=== PATIENT | female | born 1950 | race Caucasian/White ===

== ENCOUNTER → 2017-01-20 | Outpatient (CLI) | payer MEDICARE ==
--- NOTE | 2017-01-20 14:53 | REP ---
Left rib series: Five views including PA chest. History: Pain. Findings: PA chest radiograph shows clear well inflated lungs and sharp pleural angles. Cardiomediastinal silhouette is unremarkable and unchanged from the May 14, 2014 prior study. Pulmonary vasculature is not increased. Heart is not enlarged. Multiple views of the left rib cage shows diffuse osteopenia. No rib fracture is visible. No bony destructive lesion is appreciated. Impression: No acute bony abnormality. There is an old healed rib fracture visible on the right. Signed by Rivera Bhakta MD 01/20/2017 04:50 P
--- NOTE | 2017-01-20 15:09 | REP ---
Right small finger series: Four views. History: Pain. Findings: Four views of the right small finger demonstrate diffuse osteopenia. There is a chip fracture at the volar aspect of the PIP joint from the base of the middle phalanx. This is only seen on the somewhat rotated lateral radiograph. Incidental note is made of some cystic change in the distal ulna. Impression: 1. Volar plate avulsion chip fracture at the PIP joint of the fifth finger from the base of the middle phalanx. 2. Diffuse osteopenia. 3. 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 Signed by Rivera Bhakta MD 01/20/2017 04:51 P
== END ==
LOC: M WUC 12:12
PROVIDERS: ATTEND Physician Assistant
DX: S20.222A Contusion of left back wall of thorax, initial encounter (principal); M79.644 Pain in right finger(s); X58.XXXA Exposure to other specified factors, initial encounter; Y92.89 Other specified places as the place of occurrence of the external cause; Y99.9 Unspecified external cause status; Y93.9 Activity, unspecified

== ENCOUNTER → 2017-11-14 | Outpatient (CLI) | payer MEDICARE | LOC: M WUC 15:29 | DX: M54.31 Sciatica, right side (principal) | CPT/HCPCS: 72110 ==

== ENCOUNTER → 2019-07-03 | Outpatient (REF) | payer MEDICARE | LOC: M LAB REF 15:10 | PROVIDERS: ATTEND Otolaryngology | DX: J31.0 Chronic rhinitis (principal) ==

== ENCOUNTER → 2019-07-17 | Outpatient (REF) | payer MEDICARE | LOC: M LAB REF 07:43 | PROVIDERS: ATTEND Dermatology | DX: L57.0 Actinic keratosis (principal) ==

== ENCOUNTER → 2020-02-08 | Outpatient (CLI) | payer MEDICARE ==
[~2020-02-08] MED LIST: FAMO40TA3 PO; HYDR-3713 PO; SIMV20TA22 PO
== END ==
LOC: M LABSMTC 09:59
PROVIDERS: ATTEND Anesthesiology
DX: Z01.812 Encounter for preprocedural laboratory examination (principal); Z20.828 Contact with and (suspected) exposure to other viral communicable diseases

== ENCOUNTER 2020-02-13 08:06 | Day surgery (SDC) | payer MEDICARE ==
[~2020-02-13] VITALS: Ht 165.1 cm; Wt 68.0 kg
[~2020-02-13 08:06] MED LIST changes: +LIDOCAINE 2% 100MG/5ML SDV (FOR ANES.) As Ordered ONE; +NS 1,000 ML IV ONE; +fentaNYL 100 MCG/2 ML INJECTION (J3010) As Ordered ONE; +propofoL 200 MG/20 ML VIAL As Ordered ONE
--- NOTE | 2020-02-13 09:12 | ROOR ---
Patient Name: Anthony Montelongo Procedure Date: 02/13/2020 8:56 AM Date of : 1950 Age: 69 Room: [facility] Gender: Female Note Status: Finalized Procedure: Upper GI endoscopy Indications: Abdominal pain in the right upper quadrant Providers: Bebeto Rader Jr, MD Referring MD: Danita Chandler DO Requesting Provider: Medicines: Propofol per Anesthesia Complications: No immediate complications. Procedure: Pre-Anesthesia Assessment: - Prior to the procedure, a History and Physical was performed, and patient medications and allergies were reviewed. The patient is competent. The risks and benefits of the procedure and the sedation options and risks were discussed with the patient. All questions were answered and informed consent was obtained. Patient identification and proposed procedure were verified by the physician and the nurse in the pre-procedure area and in the procedure room. Mental Status Examination: alert and oriented. Airway Examination: normal oropharyngeal airway and neck mobility. Respiratory Examination: clear to auscultation. CV Examination: normal. ASA Grade Assessment: II - A patient with mild systemic disease. After reviewing the risks and benefits, the patient was deemed in satisfactory condition to undergo the procedure. The anesthesia plan was to use moderate sedation / analgesia (conscious sedation). Immediately prior to administration of medications, the patient was re-assessed for adequacy to receive sedatives. The heart rate, respiratory rate, oxygen saturations, blood pressure, adequacy of pulmonary ventilation, and response to care were monitored throughout the procedure. The physical status of the patient was re-assessed after the procedure. The Endoscope was introduced through the mouth, and advanced to the second part of duodenum. The upper GI endoscopy was accomplished without difficulty. The patient tolerated the procedure well. Findings: The upper third of the esophagus, middle third of the esophagus and lower third of the esophagus were normal. The cardia, gastric fundus, gastric body, gastric antrum and prepyloric region of the stomach were normal. The second portion of the duodenum was normal. Patchy mild inflammation characterized by congestion (edema), erythema and friability was found in the duodenal bulb. Impression: - Normal upper third of esophagus, middle third of esophagus and lower third of esophagus. - Normal cardia, gastric fundus, gastric body, antrum and prepyloric region of the stomach. - Normal second portion of the duodenum. - Duodenitis. - No specimens collected. Recommendation: - Discharge patient to home (ambulatory). - Return to my office in 2 weeks. Procedure Code(s): --- Professional --- 31597, Esophagogastroduodenoscopy, flexible, transoral; diagnostic, including collection of specimen(s) by brushing or washing, when performed (separate procedure) Diagnosis Code(s): --- Professional --- K29.80, Duodenitis without bleeding R10.11, Right upper quadrant pain CPT copyright 2019 [employer]. All rights reserved. The codes documented in this report are preliminary and upon drawer maker review may be revised to meet current compliance requirements. Bebeto Rader MD Bebeto Rader Jr, MD 02/13/2020 9:12:00 AM Electronically signed by Bebeto Rader Jr, MD Number of Addenda: 0 Note Initiated On: 02/13/2020 8:56 AM Estimated Blood Loss: Estimated blood loss: none.
--- NOTE | 2020-02-13 09:26 | ROOR ---
Patient Name: Anthony Montelongo Procedure Date: 02/13/2020 8:57 AM Date of : 1950 Age: 69 Room: [facility] Gender: Female Note Status: Finalized Procedure: Colonoscopy Indications: Abdominal pain in the right upper quadrant Providers: Bebeto Rader Jr, MD Referring MD: Danita Chandler DO Requesting Provider: Medicines: Propofol per Anesthesia Complications: No immediate complications. Procedure: Pre-Anesthesia Assessment: - Prior to the procedure, a History and Physical was performed, and patient medications and allergies were reviewed. The patient is competent. The risks and benefits of the procedure and the sedation options and risks were discussed with the patient. All questions were answered and informed consent was obtained. Patient identification and proposed procedure were verified by the physician and the nurse in the pre-procedure area and in the procedure room. Mental Status Examination: alert and oriented. Airway Examination: normal oropharyngeal airway and neck mobility. Respiratory Examination: clear to auscultation. CV Examination: normal. ASA Grade Assessment: II - A patient with mild systemic disease. After reviewing the risks and benefits, the patient was deemed in satisfactory condition to undergo the procedure. The anesthesia plan was to use moderate sedation / analgesia (conscious sedation). Immediately prior to administration of medications, the patient was re-assessed for adequacy to receive sedatives. The heart rate, respiratory rate, oxygen saturations, blood pressure, adequacy of pulmonary ventilation, and response to care were monitored throughout the procedure. The physical status of the patient was re-assessed after the procedure. The Colonoscope was introduced through the anus and advanced to the cecum, identified by appendiceal orifice and ileocecal valve. The colonoscopy was performed without difficulty. The quality of the bowel preparation was adequate. Findings: The rectum, recto-sigmoid colon, descending colon, transverse colon, ascending colon, cecum, appendiceal orifice and ileocecal valve appeared normal. Multiple small and large-mouthed diverticula were found in the sigmoid colon. Impression: - The rectum, recto-sigmoid colon, descending colon, transverse colon, ascending colon, cecum, appendiceal orifice and ileocecal valve are normal. - Diverticulosis in the sigmoid colon. - No specimens collected. Recommendation: - Discharge patient to home (ambulatory). - Repeat colonoscopy in 10 years for screening purposes. Procedure Code(s): --- Professional --- 88486, Colonoscopy, flexible; diagnostic, including collection of specimen(s) by brushing or washing, when performed (separate procedure) Diagnosis Code(s): --- Professional --- R10.11, Right upper quadrant pain K57.30, Diverticulosis of large intestine without perforation or abscess without bleeding CPT copyright 2019 [employer]. All rights reserved. The codes documented in this report are preliminary and upon terminal computer operator review may be revised to meet current compliance requirements. Bebeto Rader MD Bebeto Rader Jr, MD 02/13/2020 9:26:04 AM Electronically signed by Bebeto Rader Jr, MD Number of Addenda: 0 Note Initiated On: 02/13/2020 8:57 AM Estimated Blood Loss: Estimated blood loss: none.
[2020-02-13 10:03] VITALS: BP 151/69
== END 2020-02-13 10:08 | disposition home or self-care (01) ==
LOC: M OPP 08:06
PROVIDERS: ATTEND Surgery
DX: K57.30 Diverticulosis of large intestine without perforation or abscess without bleeding (principal); K29.80 Duodenitis without bleeding; R10.11 Right upper quadrant pain; Z79.891 Long term (current) use of opiate analgesic; Z79.899 Other long term (current) drug therapy; Z88.2 Allergy status to sulfonamides; Z91.040 Latex allergy status
CPT/HCPCS: 43235; 45378; J3010

== ENCOUNTER → 2021-03-03 | Outpatient (CLI) | payer MEDICARE ==
[~2021-03-03] MED LIST changes: +GLUCAGON INJ 1MG VIAL As Ordered ONE; +ISOVUE-370 76% 100ML VIAL As Ordered ONE; -LIDOCAINE 2% 100MG/5ML SDV (FOR ANES.) As Ordered ONE; +NEULUMEX 0.1% SUSPENSION 450ML BOTTLE (FORMERLY VOLUMEN) As Ordered ONE; -NS 1,000 ML IV ONE; -fentaNYL 100 MCG/2 ML INJECTION (J3010) As Ordered ONE; -propofoL 200 MG/20 ML VIAL As Ordered ONE
--- NOTE | 2021-03-03 12:31 | REP ---
INDICATION: OTHER INTESTNL OBST UNSP TO PARTIAL VERSUS COMP COMPARISON: CT dated 01/01/2011 TECHNIQUE: Axial contrast-enhanced images from the lung bases to the pubic symphysis with images obtained in arterial and portal venous phases of enhancement. Low-dose oral contrast material was administered prior to imaging. Coronal and sagittal reformations were obtained. FINDINGS: Fluid-filled distention to the stomach is nonspecific and likely related to recent oral contrast administration. The small and large bowel is without significant inflammatory process and there is no evidence for obstruction or perforation. No focal areas of bowel stenosis or obvious chronic change identified. Scattered colonic and primarily sigmoid diverticulosis noted without acute diverticulitis. Liver, spleen, pancreas, bilateral adrenal glands and kidneys are essentially normal. Incidental 1 cm benign hepatic cyst identified. Pelvis demonstrates normal bladder and prior hysterectomy. No ascites. No adenopathy. No free air. Atherosclerotic changes to the aorta and vasculature noted. Musculoskeletal structures demonstrate age-related changes without acute osseous abnormality. Lung bases are clear. IMPRESSION: 1. Evaluation of the enteric system is essentially normal. Scattered colonic and primarily sigmoid diverticulosis noted. 2. No acute abdominopelvic pathology appreciated. <Electronically signed by Huy Whipple > 03/03/21 [id number]
== END ==
LOC: M RAD 09:10
PROVIDERS: ATTEND Internal Medicine Gastroenterology
DX: K56.699 Other intestinal obstruction unspecified as to partial versus complete obstruction (principal); K57.30 Diverticulosis of large intestine without perforation or abscess without bleeding
CPT/HCPCS: 74177; J1610; Q9967

== ENCOUNTER → 2021-10-14 | Outpatient (CLI) | payer MEDICARE ==
[~2021-10-14] MED LIST changes: -GLUCAGON INJ 1MG VIAL As Ordered ONE; -ISOVUE-370 76% 100ML VIAL As Ordered ONE; -NEULUMEX 0.1% SUSPENSION 450ML BOTTLE (FORMERLY VOLUMEN) As Ordered ONE
== END ==
LOC: M LABSMTC 09:11
PROVIDERS: ATTEND Orthopaedic Surgery
DX: Z01.818 Encounter for other preprocedural examination (principal); Z11.52 Encounter for screening for COVID-19

== ENCOUNTER 2022-08-04 10:21 | Emergency (ER) | payer MEDICARE ==
[~2022-08-04] VITALS: Ht 162.6 cm; Wt 65.2 kg
[2022-08-04] MEDS ORDERED: KETOROLAC 30 MG/ML 1ML VIAL IV ONE (11:35)
[2022-08-04 11:40] LABS: BASO % 0.4 % (0.0-1.0); EOS # 0.1 10^3/uL (0.0-0.5); EOS % 1.2 % (0.0-3.0); HEMATOCRIT 41.3 % (36.0-47.0); HEMOGLOBIN 12.6 g/dl (12.0-15.5); LYMPH # 2.6 10^3/uL (1.5-5.0); LYMPH % 25.7 % (24.0-44.0); MEAN CORPUSCULAR HEMOGLOBIN 26.2 pg (27.0-33.0); MEAN CORPUSCULAR HGB CONC 30.5 g/dl (32.0-36.5); MEAN CORPUSCULAR VOLUME 85.9 fl (80.0-96.0); MONO # 0.8 10^3/uL (0.0-0.8); MONO % 7.8 % (2.0-8.0); NEUTROPHILS # 6.5 10^3/uL (1.5-8.5); NEUTROPHILS % 64.6 % (36.0-66.0); PLATELET COUNT, AUTOMATED 284 10^3/uL (150-450); RED BLOOD COUNT 4.81 10^6/uL (4.00-5.40); WHITE BLOOD COUNT 10.1 10^3/uL (4.0-10.0)
[2022-08-04 11:59] LABS: LIPASE 29 U/L (12-53)
[2022-08-04 12:01] LABS: ALBUMIN 3.5 G/DL (3.2-5.2); ALKALINE PHOSPHATASE 82 U/L (46-116); ALT/SGPT 23 U/L (7.0-40); AST/SGOT 18 U/L (<34); BILIRUBIN,DIRECT 0.5 MG/DL (<0.4); BILIRUBIN,TOTAL 2.1 MG/DL (0.3-1.2); BLOOD UREA NITROGEN 15 MG/DL (9-23); CALCIUM LEVEL 9.3 MG/DL (8.3-10.6); CARBON DIOXIDE LEVEL 29 MMOL/L (20-31); CHLORIDE LEVEL 105 MMOL/L (98-107); CREATININE FOR GFR 0.75 MG/DL (0.55-1.30); GLOMERULAR FILTRATION RATE > 60.0 (>39); GLUCOSE, FASTING 96 MG/DL (74-106); POTASSIUM SERUM 4.3 MMOL/L (3.5-5.1); SODIUM LEVEL 140 MMOL/L (136-145); TOTAL PROTEIN 6.7 G/DL (5.7-8.2)
[2022-08-04] MEDS ORDERED: ISOVUE-370 76% 100ML VIAL As Ordered ONE (12:09)
[2022-08-04] MEDS ORDERED: metroNIDAZOLE (FLAGYL) 500MG TABLET PO ONE (13:30)
[2022-08-04] MEDS ORDERED: CIPROFLOXACIN 500MG TABLET PO ONE (13:30)
[2022-08-04] MEDS ORDERED: CIPR-249 PO (13:44)
[2022-08-04] MEDS ORDERED: METR-265 PO (13:44)
[2022-08-04] MEDS ORDERED: DIFL150T PO (13:44)
[2022-08-04] MEDS ORDERED: ONDA4TAB6 PO (13:44)
[2022-08-04 13:45] VITALS: BP 123/70
== END 2022-08-04 13:59 | disposition home or self-care (01) ==
LOC: M ED 10:21
DX: K57.90 Diverticulosis of intestine, part unspecified, without perforation or abscess without bleeding (principal); E11.9 Type 2 diabetes mellitus without complications; R25.1 Tremor, unspecified; K21.9 Gastro-esophageal reflux disease without esophagitis; J45.909 Unspecified asthma, uncomplicated; E78.5 Hyperlipidemia, unspecified; H81.4 Vertigo of central origin; J32.9 Chronic sinusitis, unspecified; Z88.2 Allergy status to sulfonamides; Z91.040 Latex allergy status; Z79.899 Other long term (current) drug therapy
CPT/HCPCS: 74177; 80048; 80076; 81001; 83690; 85025; 87088; 87186; 96374; 99284; J1885; Q9967

== ENCOUNTER 2023-08-19 10:22 | Emergency (ER) | payer MEDICARE ==
[~2023-08-19] VITALS: Ht 160 cm; Wt 64.7 kg
[~2023-08-19 10:22] MED LIST changes: +CIPR-249 PO; +DIFL150T PO; +METR-265 PO; +ONDA-282 PO
[2023-08-19] MEDS ORDERED: FLUT15.820 NARES (10:34)
[2023-08-19] MEDS ORDERED: ALBU8.5H INH (10:34)
[2023-08-19] MEDS ORDERED: MONT10TA97 PO (10:34)
[2023-08-19] MEDS ORDERED: PROB250C PO (10:34)
[2023-08-19 13:50] VITALS: BP 142/67; TEMP 97.8; O2SAT 98
== END 2023-08-19 13:59 | disposition home or self-care (01) ==
LOC: M ED 10:22
DX: M71.22 Synovial cyst of popliteal space [Baker], left knee (principal); E11.9 Type 2 diabetes mellitus without complications; E78.5 Hyperlipidemia, unspecified; J45.909 Unspecified asthma, uncomplicated; Z88.2 Allergy status to sulfonamides; Z91.040 Latex allergy status; Z79.51 Long term (current) use of inhaled steroids; Z79.899 Other long term (current) drug therapy

== ENCOUNTER → 2023-08-22 | Outpatient (CLI) | payer MEDICARE ==
[~2023-08-22] MED LIST changes: +ALBU8.5H INH; +FLUT15.820 NARES; +MONT10TA97 PO; +PROB250C PO
== END ==
LOC: M SOG 07:49
PROVIDERS: ATTEND Physician Assistant
DX: M25.562 Pain in left knee (principal); M85.862 Other specified disorders of bone density and structure, left lower leg; M17.12 Unilateral primary osteoarthritis, left knee

== ENCOUNTER 2024-05-07 15:36 | Emergency (ER) | payer MEDICARE ==
[~2024-05-07] VITALS: Ht 162.6 cm; Wt 65.3 kg
[2024-05-07 16:33] LABS: BASO # 0.1 10^3/uL (0.0-0.2); BASO % 0.5 % (0.0-1.0); EOS # 0.1 10^3/uL (0.0-0.5); EOS % 1.2 % (0.0-3.0); HEMATOCRIT 44.2 % (36.0-47.0); HEMOGLOBIN 13.7 g/dl (12.0-15.5); LYMPH % 31.3 % (24.0-44.0); MEAN CORPUSCULAR HEMOGLOBIN 26.6 pg (27.0-33.0); MEAN CORPUSCULAR VOLUME 85.8 fl (80.0-96.0); MONO # 0.5 10^3/uL (0.0-0.8); MONO % 5.2 % (2.0-8.0); NEUTROPHILS # 5.8 10^3/uL (1.5-8.5); NEUTROPHILS % 61.4 % (36.0-66.0); PLATELET COUNT, AUTOMATED 318 10^3/uL (150-450); RED BLOOD COUNT 5.15 10^6/uL (4.00-5.40); WHITE BLOOD COUNT 9.5 10^3/uL (4.0-10.0)
[2024-05-07 17:07] LABS: BLOOD UREA NITROGEN 19 MG/DL (9-23); CALCIUM LEVEL 9.4 MG/DL (8.3-10.6); CARBON DIOXIDE LEVEL 29 MMOL/L (20-31); CHLORIDE LEVEL 105 MMOL/L (98-107); CREATININE FOR GFR 0.79 MG/DL (0.55-1.30); GLOMERULAR FILTRATION RATE > 60.0 (>39); GLUCOSE, FASTING 110 MG/DL (74-106); MAGNESIUM LEVEL 2.1 MG/DL (1.8-2.4); POTASSIUM SERUM 3.7 MMOL/L (3.5-5.1); SODIUM LEVEL 143 MMOL/L (136-145)
[2024-05-07 17:09] LABS: THYROID STIMULATING HORMONE 1.547 uIU/ML (0.55-4.78)
[2024-05-07 19:08] VITALS: BP 146/70; TEMP 98.2; O2SAT 98
== END 2024-05-07 19:09 | disposition home or self-care (01) ==
LOC: M ED 15:36
DX: I49.3 Ventricular premature depolarization (principal); K21.9 Gastro-esophageal reflux disease without esophagitis; J45.909 Unspecified asthma, uncomplicated; E78.5 Hyperlipidemia, unspecified; Z88.2 Allergy status to sulfonamides; Z91.040 Latex allergy status; Z79.51 Long term (current) use of inhaled steroids; Z79.899 Other long term (current) drug therapy